=== PATIENT | male | born 1970 | race Caucasian/White ===

== ENCOUNTER 2020-10-28 13:03 | Emergency (ER) | payer MEDICAID ==
[~2020-10-28] VITALS: Ht 180.3 cm; Wt 79.4 kg
[2020-10-28 13:22] VITALS: BP_SYST 152
[2020-10-28 16:26] LABS: BILIRUBIN,URINE NEGATIVE (NEGATIVE); BLOOD, URINE NEGATIVE (NEGATIVE); CLARITY/URINE CLEAR (CLEAR); COLOR,URINE YELLOW (YELLOW); GLUCOSE,URINE NEGATIVE (NEGATIVE); KETONES,URINE NEGATIVE (NEGATIVE); LEUKOCYTE ESTERASE ,URINE NEGATIVE (NEGATIVE); NITRITE, URINE NEGATIVE (NEGATIVE); PROTEIN URINE NEGATIVE (NEGATIVE); UROBILINOGEN,URINE 0.2 (0.2-1.0)
[2020-10-28] MEDS: CIPROFLOXACIN HCL 500 MG TABLET PO ONE (19:30)
[2020-10-28 19:32] VITALS: BP_SYST 132
== END 2020-10-28 19:32 | disposition home or self-care (01) ==
LOC: SED 13:03
DX: N45.1 Epididymitis (principal)
CPT/HCPCS: 76870-TC; 81003; 99284